=== PATIENT | male | born 1955 | race Native Hawaiian/Other Pacific Islander ===

== ENCOUNTER 2017-12-14 10:19 | Outpatient (CLI) | payer OTHER | END 2017-12-14 22:03 | disposition home or self-care (01) | LOC: RAD 10:19 | DX: Z01.818 Encounter for other preprocedural examination (principal) ==

== ENCOUNTER 2021-08-20 11:14 | Outpatient (CLI) | payer OTHER | END 2021-08-20 19:20 | disposition home or self-care (01) | LOC: RAD 11:14 | PROVIDERS: ATTEND Nurse Practitioner Family | DX: Z01.818 Encounter for other preprocedural examination (principal) ==